=== PATIENT | female | born 1975 | race Caucasian/White ===

== ENCOUNTER 2016-11-25 05:43 | Day surgery (SDC) | payer OTHER ==
[~2016-11-25] VITALS: Ht 154.9 cm; Wt 147.7 kg
[~2016-11-25 05:43] MED LIST: AMITRIPTYLINE H25 MG PO; AMLODIPINE BESY10 MG PO; ASCORBIC ACID500 M3 PO; CINNAMON500 MG PO; DITROPAN XL10 MG PO; FISH OIL 1,0001 EAC7 PO; FLOMAX0.4 M1 PO; FLONASE ALLERG9.9 ML BOTH NARES; GEMFIBROZIL600 MG PO; GLIMEPIRIDE2 MG PO; HYDROCODON-ACE1 EAC8 PO; LOSARTAN-HCTZ1 EAC1 PO; MAXALT MLT10 MG PO; NAPROSYN500 MG PO; PHENERGAN25 MG PO; PREVACID30 MG PO; PROMETHAZINE HC25 M1 PO; PROVENTIL,200 INHALA; RELPAX40 MG PO; ROBITUSSIN AC,T10 ML PO; SPRIX; TRAMADOL HCL50 MG PO; TRIAMTERENE-HC1 EAC1 PO; VENTOLIN HFA18 GM IH; VICODIN,LORT1 TABLET PO; VITAMIN B-122000 MC1 PO; VITAMIN D-32000 UNI2 PO; ZITHROMAX Z-PA250 MG PO; ZOLOFT100 MG PO
[2016-11-25 06:24] VITALS: BP 132/83
[2016-11-25 06:48] LABS: POINT-OF-CARE METER ID UU14174212
[2016-11-25 09:34] LABS: POINT-OF-CARE METER ID UU13113675
[2016-11-25 09:36] VITALS: BP 140/75
[2016-11-25 10:00] VITALS: BP 125/66
== END 2016-11-25 10:15 | disposition home or self-care (01) ==
LOC: SDC 05:43
PROVIDERS: Podiatrist Foot & Ankle Surgery
PROC: 0J8Q3ZZ Division of Right Foot Subcutaneous Tissue and Fascia, Percutaneous Approach (ICD-10-PCS; principal; 2016-11-25)
DX: M72.2 Plantar fascial fibromatosis (principal); E11.9 Type 2 diabetes mellitus without complications; I10 Essential (primary) hypertension; E78.5 Hyperlipidemia, unspecified; F32.9 Major depressive disorder, single episode, unspecified; K21.9 Gastro-esophageal reflux disease without esophagitis; E66.01 Morbid (severe) obesity due to excess calories; Z68.43 Body mass index [BMI] 50.0-59.9, adult; J45.909 Unspecified asthma, uncomplicated; Z87.891 Personal history of nicotine dependence; Z79.84 Long term (current) use of oral hypoglycemic drugs; Z86.14 Personal history of Methicillin resistant Staphylococcus aureus infection; Z79.899 Other long term (current) drug therapy; Z82.0 Family history of epilepsy and other diseases of the nervous system; Z83.3 Family history of diabetes mellitus
CPT/HCPCS: 82948; J2250; J3010

== ENCOUNTER 2017-12-28 19:16 | Emergency (ER) | payer OTHER ==
[~2017-12-28] VITALS: Ht 154.9 cm; Wt 150.1 kg
[2017-12-28 20:01] LABS: BASOPHIL (%) 0.9 % (0-1); BASOPHIL COUNT 0.1 K/uL (0-0.1); EOSINOPHIL (%) 0.1 % (0-5); HEMATOCRIT 41.9 % (36.0-46.0); HEMOGLOBIN 14.2 G/DL (11.9-15.5); IMMATURE GRANULOCYTE (%) 0.7 % (0.0-0.7); LYMPHOCYTE COUNT 2.8 K/uL (1.0-2.8); MCH 28.9 PG (29.0-34.0); MCHC 33.9 G/DL (30.0-36.0); MCV 85.2 FL (83-99); NEUTROPHIL (%) 53.3 % (45-76); NEUTROPHIL COUNT 4.6 K/uL (1.8-6.4); PLATELET COUNT 274 K/uL (156-360); RBC DIS.WIDTH-CV 12.6 % (11.8-14.6); RBC DIS.WIDTH-SD 38.5 % (39-53); RED BLOOD COUNT 4.92 M/uL (3.80-5.20); WHITE BLOOD COUNT 8.6 K/uL (4.1-10.2)
[2017-12-28 20:13] LABS: CHLORIDE 100 mEq/L (99-109); POTASSIUM 3.6 mEq/L (3.7-5.4); SODIUM 137 mEq/L (136-147)
[2017-12-28 20:15] LABS: GLUCOSE 298 mg/dL (70-99)
[2017-12-28 20:18] LABS: SERUM ETHYL ALCOHOL < 10 mg/dL
[2017-12-28 20:19] LABS: CREATININE 0.8 mg/dL (0.6-1.3); GFR ESTIMATE (CALCULATED) > 59 mL/min/; UREA NITROGEN (BUN) 13 mg/dL (9-23)
[2017-12-28 21:46] LABS: AMPHETAMINE NEGATIVE (500 ng/mL); BARBITURATES NEGATIVE (200 ng/mL); BENZODIAZEPINES NEGATIVE (150 ng/mL); BUPRENORPHINE NEGATIVE (10 ng/mL); COCAINE NEGATIVE (150 ng/mL); METHADONE NEGATIVE (200 ng/mL); METHAMPHETAMINE NEGATIVE (500 ng/mL); OPIATES (MORPHINE) NEGATIVE (100 ng/mL); OXYCODONE NEGATIVE (100 ng/mL); PHENCYCLIDINE NEGATIVE (25 ng/mL); PROPOXYPHENE NEGATIVE (300 ng/mL); THC CANNABINOIDS NEGATIVE (50 ng/mL); TRICYCLIC ANTIDEPRESSANTS NEGATIVE (300 ng/mL)
[2017-12-28] MEDS ORDERED: ATARAX,VISTARIL25 MG PO (21:47)
[2017-12-28 22:19] VITALS: BP 135/93
== END 2017-12-28 22:21 | disposition home or self-care (01) ==
LOC: EME 19:16
PROVIDERS: Emergency Medicine
DX: F32.9 Major depressive disorder, single episode, unspecified (principal); F41.9 Anxiety disorder, unspecified; J45.909 Unspecified asthma, uncomplicated; I10 Essential (primary) hypertension; E11.9 Type 2 diabetes mellitus without complications; Z79.84 Long term (current) use of oral hypoglycemic drugs
CPT/HCPCS: 80048; 85025; 90839; 99281; 99285; G0480; Q0177